=== PATIENT | male | born 1950 | race African-American/Black ===

== ENCOUNTER 2019-03-13 17:50 | Inpatient (IN) | payer MEDICARE ==
[2019-03-13 21:44] LABS: Basophils # (Auto) 0.1 K/mm3 (0.0-0.1); Basophils % (Auto) 0.9 % (0.0-1.8); Eosinophils # (Auto) 0.3 K/mm3 (0.0-0.4); Eosinophils % (Auto) 3.6 % (0.0-4.3); Hematocrit 42.6 % (35.5-45.6); Hemoglobin 14.2 gm/dl (11.8-15.2); Lymphocytes # (Auto) 1.9 K/mm3 (1.2-5.4); Lymphocytes % (Auto) 20.3 % (13.4-35.0); Mean Corpuscular HGB Conc 33 % (32-34); Mean Corpuscular Volume 91 fl (84-94); Monocytes # (Auto) 0.7 K/mm3 (0.0-0.8); Monocytes % (Auto) 7.7 % (0.0-7.3); Red Blood Count 4.71 M/mm3 (3.65-5.03); Red Cell Distribution Width 17.4 % (13.2-15.2)
[2019-03-13 21:52] LABS: Platelet Count 289 K/mm3 (140-440)
[2019-03-13 22:03] LABS: Calcium 9.6 mg/dL (8.4-10.2); INR 0.74 (0.87-1.13)
--- NOTE | 2019-03-13 22:28 | XRay Report ---
ABDOMEN SUPINE INDICATION / CLINICAL INFORMATION: broken peg tube. COMPARISON: None available. FINDINGS: PEG tube cannot be identified. Bowel gas pattern is nonspecific, not indicative of obstruction. Signer Name: Carlos Laguna MD Signed: 03/13/2019 10:24 PM Workstation Name: [id number]
--- NOTE | 2019-03-13 23:54 | Cat Scan Report ---
CT abdomen pelvis wo con INDICATION: luq peg tube broken with possible retained fb body. TECHNIQUE: All CT scans at this location are performed using the following dose modulation technique: Automated exposure control. CONTRAST: None. COMPARISON: None available. CT ABDOMEN: Mild pleural thickening right base. Evaluation of the parenchymal organs demonstrates a 1.4 cm left hepatic cyst located anteriorly and s uperiorly. The kidneys are partially atrophic and contain benign-appearing cysts Vasser calcification and nonobstructing right renal stones. The remaining parenchymal organs are unremarkable. Negative for abdominal mass, fluid collection or inflammation. The aorta contains atherosclerotic sharri cification. Evaluation of the bowel demonstrates no thickening or obstruction. Mild distention is noted at the si gmoid colon. No retained foreign body is identified. CT PELVIS: The appendix is normal. Negative for pelvic mass, fluid or inflammation. The prostate glan d is moderately enlarged. IMPRESSION: 1. Negative for retained foreign body. 2. Mild pleural thickening right base. 3. Renal atrophy with cysts and nonobstructing right renal stones. 4. Moderate prostate enlargement. Signer Name: Bertram Vu MD Signed: 03/13/2019 11:49 PM Workstation Name: [id number]
--- NOTE | 2019-03-14 00:10 | Emergency Department Report ---
ED Abdominal Pain HPI - General Chief Complaint: Tube Replacement Stated Complaint: PEG TUBE REINSERTION Time Seen by Provider: 03/13/19 20:57 Source: patient, EMS, old records reviewed Mode of arrival: Stretcher Limitations: Physical Limitation - History of Present Illness Initial Comments: 69-year-old male with a past medical history GERD, hypertension, anxiety, schizophrenia, end-stage renal disease on dialysis presents to the hospital for PEG tube dislodgment. As per medical record patient had his PEG tube replaced in the ER on February 05. He was sent to the ER with a Barr catheter in place to keep stoma patent. Patient does understand Filipino and able to answer basic questions however, I'm unsure how reliable his answers are. He nods yes that he does eat and also nods yest that they continue to use his Barr for meds. His medical records states he has a history of oral pharyngeal phase dysphasia. Patient is a 16 Jamaican G-tube taped to his abdomen with the distal tip appearing to be broken and lacking a balloon or bumper. Stoma appears to be closed. Note that a new chart was created today however, patient has been seen here sev eral times under a different medical record number Severity scale (0 -10): 0 - Related Data Allergies Allergy/AdvReac Type Severity Reaction Status Date / Time No Known Allergies Allergy Unverified 03/13/19 22:34 ED Review of Systems ROS: Stated complaint: PEG TUBE REINSERTION Other details as noted in HPI Comment: All other systems reviewed and negative ED Past Medical Hx - Past Medical History Previous Medical History?: Yes Hx Hypertension: Yes Hx GERD: Yes Hx Renal Disease: Yes (ESRD on HD) Hx Psychiatric Treatment: Yes (anxiety, schizophrenia) - Surgical History Past Surgical History?: Yes Additional Surgical History: PEG tube - Social History Smoking Status: Never Smoker Substance Use Type: None ED Physical Exam - General Limitations: Physical Limitation - Other Other exam information: General: No acute distress Head: Atraumatic Eyes: Normal appearance, Pupils equal and reactive to light, extraocular movements intact ENT: Normal oropharynx Neck: Normal appearance, no posterior or midline tenderness, no meningismus Chest: Clear to auscultation bilaterally, no wheezes, rales, or crackles CV: Regular rate and rhythm Abdomen: soft, normal bowel sounds, nontender, nondistended, no rebound or guarding. Patient is a 16 Jamaican G-tube taped to his abdomen with the distal tip appearing to be broken and lacking a balloon or bumper. Stoma appears to be closed. Back: Nontender Extremity: Normal inspection, full range of motion, nontender Neuro: Alert Skin: No rash, redness, warmth ED Course Vital Signs 03/13/19 03/13/19 03/13/19 17:53 18:56 19:30 Temperature 97.6 F 97.8 F 97.6 F Pulse Rate 90 80 83 Respiratory 20 12 14 Rate Blood Pressure 126/82 Blood Pressure 140/80 133/74 [Right] O2 Sat by Pulse 97 99 99 Oximetry 03/13/19 03/13/19 03/13/19 20:00 21:00 22:00 Temperature Pulse Rate 85 93 H 87 Respiratory 14 17 14 Rate Blood Pressure Blood Pressure 133/77 132/87 135/79 [Right] O2 Sat by Pulse 98 98 97 Oximetry 03/13/19 23:00 Temperature Pulse Rate 92 H Respiratory 14 Rate Blood Pressure Blood Pressure 127/78 [Right] O2 Sat by Pulse 98 Oximetry - Consultations Consultation #1: 03/14/19 00:27 case d/w Dr Granda GI, ct advised and report was discussed, NO FB identified. Pt will be admitted for peg placement ED Medical Decision Making - Lab Data Result diagrams: 03/13/19 21:33 03/13/19 21:33 Lab Results 03/13/19 03/13/19 03/13/19 Range/Units 21:33 21:33 21:33 WBC 9.3 (4.5-11.0) K/mm3 RBC 4.71 (3.65-5.03) M/mm3 Hgb 14.2 (11.8-15.2) gm/dl Hct 42.6 (35.5-45.6) % MCV 91 (84-94) fl MCH 30 (28-32) pg MCHC 33 (32-34) % RDW 17.4 H (13.2-15.2) % Plt Count 289 (140-440) K/mm3 Lymph % (Auto) 20.3 (13.4-35.0) % [place] % (Auto) 7.7 H (0.0-7.3) % Eos % (Auto) 3.6 (0.0-4.3) % Baso % (Auto) 0.9 (0.0-1.8) % Lymph # 1.9 (1.2-5.4) K/mm3 [place] # 0.7 (0.0-0.8) K/mm3 Eos # 0.3 (0.0-0.4) K/mm3 Baso # 0.1 (0.0-0.1) K/mm3 Seg Neutrophils % 67.5 (40.0-70.0) % Seg Neutrophils # 6.3 (1.8-7.7) K/mm3 PT 10.2 L (12.2-14.9) Sec. INR 0.74 L (0.87-1.13) APTT 20.0 L (24.2-36.6) Sec. Sodium 136 L (137-145) mmol/L Potassium 4.1 (3.6-5.0) mmol/L Chloride 93.7 L (98-107) mmol/L Carbon Dioxide 25 (22-30) mmol/L Anion Gap 21 mmol/L BUN 26 H (9-20) mg/dL Creatinine 3.0 H (0.8-1.5) mg/dL Estimated GFR 21 ml/min BUN/Creatinine Ratio 9 % Glucose 86 (75-100) mg/dL Calcium 9.6 (8.4-10.2) mg/dL - Radiology Data Radiology results: report reviewed ABDOMEN SUPINE INDICATION / CLINICAL INFORMATION: broken peg tube. COMPARISON: None available. FINDINGS: PEG tube cannot be identified. Bowel gas pattern is nonspecific, not indicative of obstruction. CT abdomen pelvis wo con INDICATION: luq peg tube broken with possible retained fb body. TECHNIQUE: All CT scans at this location are performed using the following dose modulation technique: Automated exposure control. CONTRAST: None. COMPARISON: None available. CT ABDOMEN: Mild pleural thickening right base. Evaluation of the parenchymal organs demonstrates a 1.4 cm left hepatic cyst located anteriorly and superiorly. The kidneys are partially atrophic and contain benign-appearing cysts Vasser calcification and nonobstructing right renal stones. The remaining parenchymal organs are unremarkable. Negative for abdominal mass, fluid collection or inflammation. The aorta contains atherosclerotic calcification. Evaluation of the bowel demonstrates no thickening or obstruction. Mild distention is noted at the sigmoid colon. No retained foreign body is identified. CT PELVIS: The appendix is normal. Negative for pelvic mass, fluid or inflammation. The prostate gland is moderately enlarged. IMPRESSION: 1. Negative for retained foreign body. 2. Mild pleural thickening right base. 3. Renal atrophy with cysts and nonobstructing right renal stones. 4. Moderate prostate enlargement. - Medical Decision Making Patient has his dislodged PEG without evidence of retained foreign body despite evidence of a broken distal tip on the peg tube catheter. Patient will be admitted for PEG tube placement. GI consulted - Differential Diagnosis dislodged headache, retained foreign body Critical Care Time: No Critical care attestation.: If time is entered above; I have spent that time in minutes in the direct care of this critically ill patient, excluding procedure time. ED Disposition Clinical Impression: PEG (percutaneous endoscopic gastrostomy) adjustment/replacement/removal, ESRD (end stage renal disease) on dialysis Disposition: OP ADMIT IP TO THIS HOSP Is pt being admited?: Yes Condition: Stable Time of Disposition: 00:31 (Dr Mei/hosp)
[2019-03-14] MEDS ORDERED: TYLENOL PO PRN (00:45)
[2019-03-14] MEDS ORDERED: ZOFRAN IV PRN (00:45)
[2019-03-14] MEDS ORDERED: SODIUM CHLORIDE FLUSH SYRINGE 10 ML IV PRN (00:45)
--- NOTE | 2019-03-14 01:41 | History and Physical Report ---
<TIFFANY ELIZABETH - Last Filed: 03/14/19 01:35> History of Present Illness Date of examination: 03/14/19 Date of admission: 03/14/19 00:45 Chief complaint: PEG tube dislodgment History of present illness: 69-year-old male who is resident of [facility] with history of bipolar disorder, schizophrenia, anxiety, GERD, chronic dysphagia s/p PEG tube, ESRD on HD M/W/F, hypertension, CHF, cardiomyopathy who presents to [facility] ED com plaints of PEG tube dislodgment and is here for reinsertion. On examination stoma is closed. Pt has a 16 Lithuanian G-tube holding in his left hand. Review of medical records shows patient was seen in ED on 02/05 with Barr in gastrotomy site to keep stoma patent . Head exchange was done in ED and pt was discharged back to [facility]. Past History Past Medical History: ESRD (on hd m/w/f,), GERD, heart failure, hypertension, other (chronic dysphasia, cardiomyopathy, bipolar, schizophrenia, anxiety) Past Surgical History: Other (PEG tube placement, right chest permacath) Social history: other (resident of [facility]) Family history: no significant family history Medications and Allergies Allergies Allergy/AdvReac Type Severity Reaction Status Date / Time No Known Allergies Allergy Unverified 03/13/19 22:34 Active Meds: Active Medications Acetaminophen (Tylenol) 650 mg PO Q4H PRN PRN Reason: Pain MILD(1-3)/Fever >100.5/HERNANDEZ Heparin Sodium (Porcine) (Heparin) 5,000 unit SUB-Q Q12HR BASIL Ondansetron HCl (Zofran) 4 mg IV Q8H PRN PRN Reason: Nausea And Vomiting Sodium Chloride (Sodium Chloride Flush Syringe 10 Ml) 10 ml IV BID BASIL Sodium Chloride (Sodium Chloride Flush Syringe 10 Ml) 10 ml IV PRN PRN PRN Reason: LINE FLUSH Review of Systems All systems: negative Gastrointestinal: other (PEG tube dislodgment) Exam - Physical Exam Narrative exam: Physical exam General appearance: Present: No acute distress, alert and oriented 2, older adult male - EENT Eyes: Present: PERRL, EOM intact ENT: hearing intact, no dentition - Neck Neck: Present: supple, normal ROM - Respiratory Respiratory effort: Non-labored Respiratory: bilateral: diminished (bases) - Cardiovascular Heart rate: 92 (bpm) Rhythm: regular Heart Sounds: Present: S1 & S2. Absent: rub, click - Extremities Extremities: no ischemia, pulses intact, right chest permacath - Peripheral Assessment Peripheral Pulses: within normal limits - Abdominal General gastrointestinal: soft, non-tender, active bsx4, LUQ PEG tube site closed - Integumentary Integumentary: Present: warm, dry - Musculoskeletal Musculoskeletal: generalized weakness - Psychiatric Psychiatric: cooperative - Constitutional Vitals: Temp Pulse Resp BP Pulse Ox 97.6 F 92 H 14 127/78 98 03/13/19 19:30 03/13/19 23:00 03/13/19 23:00 03/13/19 23:00 03/13/19 23:00 Results - Labs CBC & Chem 7: 03/13/19 21:33 03/13/19 21:33 Labs: Laboratory Last Values WBC 9.3 K/mm3 (4.5-11.0) 03/13/19 21:33 RBC 4.71 M/mm3 (3.65-5.03) 03/13/19 21:33 Hgb 14.2 gm/dl (11.8-15.2) 03/13/19 21:33 Hct 42.6 % (35.5-45.6) 03/13/19 21:33 MCV 91 fl (84-94) 03/13/19 21:33 MCH 30 pg (28-32) 03/13/19 21:33 MCHC 33 % (32-34) 03/13/19 21:33 RDW 17.4 % (13.2-15.2) H 03/13/19 21:33 Plt Count 289 K/mm3 (140-440) 03/13/19 21:33 Lymph % (Auto) 20.3 % (13.4-35.0) 03/13/19 21:33 [place] % (Auto) 7.7 % (0.0-7.3) H 03/13/19 21:33 Eos % (Auto) 3.6 % (0.0-4.3) 03/13/19 21:33 Baso % (Auto) 0.9 % (0.0-1.8) 03/13/19 21:33 Lymph # 1.9 K/mm3 (1.2-5.4) 03/13/19 21:33 [place] # 0.7 K/mm3 (0.0-0.8) 03/13/19 21:33 Eos # 0.3 K/mm3 (0.0-0.4) 03/13/19 21:33 Baso # 0.1 K/mm3 (0.0-0.1) 03/13/19 21:33 Seg Neutrophils % 67.5 % (40.0-70.0) 03/13/19 21:33 Seg Neutrophils # 6.3 K/mm3 (1.8-7.7) 03/13/19 21:33 PT 10.2 Sec. (12.2-14.9) L 03/13/19 21:33 INR 0.74 (0.87-1.13) L 03/13/19 21:33 APTT 20.0 Sec. (24.2-36.6) L 03/13/19 21:33 Sodium 136 mmol/L (137-145) L 03/13/19 21:33 Potassium 4.1 mmol/L (3.6-5.0) 03/13/19 21:33 Chloride 93.7 mmol/L (98-107) L 03/13/19 21:33 Carbon Dioxide 25 mmol/L (22-30) 03/13/19 21:33 21 mmol/L 03/13/19 21:33 BUN 26 mg/dL (9-20) H 03/13/19 21:33 3.0 mg/dL (0.8-1.5) H 03/13/19 21:33 Estimated GFR 21 ml/min 03/13/19 21:33 9 % 03/13/19 21:33 Glucose 86 mg/dL (75-100) 03/13/19 21:33 Calcium 9.6 mg/dL (8.4-10.2) 03/13/19 21:33 - Imaging and Cardiology Imaging and Cardiology: Abdominal XR: FINDINGS: PEG tube cannot be identified. Bowel gas pattern is nonspecific, not indicative of obstruction. CT Abd/Pelvis: CT ABDOMEN: Mild pleural thickening right base. Evaluation of the parenchymal organs demonstrates a 1.4 cm left hepatic cyst located anteriorly and superiorly. The kidneys are partially atrophic and contain benign-appearing cysts Vasser calcification and nonobstructing right renal stones. The remaining parenchymal organs are unremarkable. Negative for abdominal mass, fluid collection or inflammation. The aorta contains atherosclerotic calcification. Evaluation of the bowel demonstrates no thickening or obstruction. Mild distention is noted at the sigmoid colon. No retained foreign body is identified. CT PELVIS: The appendix is normal. Negative for pelvic mass, fluid or inflammation. The prostate gland is moderately enlarged. IMPRESSION: 1. Negative for retained foreign body. 2. Mild pleural thickening right base. 3. Renal atrophy with cysts and nonobstructing right renal stones. 4. Moderate prostate enlargement. Assessment and Plan Assessment and plan: 69-year-old male who is resident of [facility] with history of bipolar disorder, schizophrenia, anxiety, GERD, chronic dysphagia s/p PEG tube, ESRD on HD M/W/F, hypertension, CHF, cardiomyopathy who presents to [facility] ED complaints of PEG tube dislodgment and is here for reinsertion. PEG tube dislodgment -Left lower quadrant PEG tube dislodged -CT Abd/Pelvis negative for retained foreign body -GI consulted with plans to surgically reinsert ESRD on HD M/W/F -Nephrology consulted for HD mgmt Hypertension -Continue to monitor BP -IV antihypertensive as needed DVT PPX -On SCD's Advance Directives: No VTE prophylaxis?: Mechanical Plan of care discussed with patient/family: Yes <IVORY GALLAGHER - Last Filed: 03/14/19 03:14> History of Present Illness Date of admission: 03/14/19 00:45 Medications and Allergies Active Meds: Active Medications Acetaminophen (Tylenol) 650 mg PO Q4H PRN PRN Reason: Pain MILD(1-3)/Fever >100.5/HERNANDEZ Hydralazine HCl (Apresoline) 10 mg IV Q4H PRN PRN Reason: Blood Pressure Ondansetron HCl (Zofran) 4 mg IV Q8H PRN PRN Reason: Nausea And Vomiting Sodium Chloride (Sodium Chloride Flush Syringe 10 Ml) 10 ml IV BID BASIL Sodium Chloride (Sodium Chloride Flush Syringe 10 Ml) 10 ml IV PRN PRN PRN Reason: LINE FLUSH Exam - Constitutional Vitals: Temp Pulse Resp BP Pulse Ox 97.6 F 92 H 14 127/78 98 03/13/19 19:30 03/13/19 23:00 03/13/19 23:00 03/13/19 23:00 03/13/19 23:00 Results - Labs CBC & Chem 7: 03/13/19 21:33 03/13/19 21:33 Labs: Laboratory Last Values WBC 9.3 K/mm3 (4.5-11.0) 03/13/19 21:33 RBC 4.71 M/mm3 (3.65-5.03) 03/13/19 21:33 Hgb 14.2 gm/dl (11.8-15.2) 03/13/19 21:33 Hct 42.6 % (35.5-45.6) 03/13/19 21: MCV 91 fl (84-94) 03/13/19 21: MCH 30 pg (28-32) 03/13/19 21: MCHC 33 % (32-34) 03/13/19 21: RDW 17.4 % (13.2-15.2) H 03/13/19 21:33 Plt Count 289 K/mm3 (140-440) 03/13/19 21:33 Lymph % (Auto) 20.3 % (13.4-35.0) 03/13/19 21:33 [place] % (Auto) 7.7 % (0.0-7.3) H 03/13/19 21:33 Eos % (Auto) 3.6 % (0.0-4.3) 03/13/19 21: Baso % (Auto) 0.9 % (0.0-1.8) 03/13/19 21: Lymph # 1.9 K/mm3 (1.2-5.4) 03/13/19 21: [place] # 0.7 K/mm3 (0.0-0.8) 03/13/19 21:33 Eos # 0.3 K/mm3 (0.0-0.4) 03/13/19 21:33 Baso # 0.1 K/mm3 (0.0-0.1) 03/13/19 21:33 Seg Neutrophils % 67.5 % (40.0-70.0) 03/13/19 21:33 Seg Neutrophils # 6.3 K/mm3 (1.8-7.7) 03/13/19 21: PT 10.2 Sec. (12.2-14.9) L 03/13/19 21:33 INR 0.74 (0.87-1.13) L 03/13/19 21:33 APTT 20.0 Sec. (24.2-36.6) L 03/13/19 21:33 Sodium 136 mmol/L (137-145) L 03/13/19 21:33 Potassium 4.1 mmol/L (3.6-5.0) 03/13/19 21:33 Chloride 93.7 mmol/L (98-107) L 03/13/19 21:33 Carbon Dioxide 25 mmol/L (22-30) 03/13/19 21:33 21 mmol/L 03/13/19 21:33 BUN 26 mg/dL (9-20) H 03/13/19 21:33 3.0 mg/dL (0.8-1.5) H 03/13/19 21:33 Estimated GFR 21 ml/min 03/13/19 21:33 9 % 03/13/19 21:33 Glucose 86 mg/dL (75-100) 03/13/19 21:33 Calcium 9.6 mg/dL (8.4-10.2) 03/13/19 21:33 Assessment and Plan Assessment and plan: Patient seen and examined, 69-year-old man, prison patient with multiple medical problems assented in the emergency room because his PEG tube dislodged. Agree with GI consult for replacement
[2019-03-14] MEDS ORDERED: APRESOLINE IV PRN (01:49)
--- NOTE | 2019-03-14 09:30 | Consultation ---
History of Present Illness - Reason for Consult Consult date: 03/14/19 end stage renal disease Requesting physician: TIFFANY ELIZABETH - History of Present Illness This is a 69yo M, [facility] resident, with past medical history of hypertension, CHF, bipolar disorder, schizophrenia, anxiety, GERD, chronic dysphagia s/p PEG tube, ESRD on HD M/W/ at [facility], who presents to [facility] ED after PEG tube dislodgment, now admitted for reinsertion. On examination stoma is closed. Renal consult is requested for management of ESRD/HD. Past History Past Medical History: ESRD (on hd m/w/,), GERD, heart failure, hypertension, other (chronic dysphasia, cardiomyopathy, bipolar, schizophrenia, anxiety) Past Surgical History: Other (PEG tube placement, right chest permacath) Social history: other (resident of [facility]) Family history: no significant family history Medications and Allergies Allergies Allergy/AdvReac Type Severity Reaction Status Date / Time No Known Allergies Allergy Unverified 03/13/19 22:34 Home Medications Medication Instructions Recorded Confirmed Last Taken Type Escitalopram Oxalate [Lexapro] 5 mg FEEDTUBE QDAY 03/14/19 03/14/19 Unknown History L. Acidophilus/L.bulgaricus 1 each FEEDTUBE DAILY 03/14/19 03/14/19 Unknown History [Lactobacillus Tablet] Metoprolol [Lopressor] 25 mg FEEDTUBE BID 03/14/19 03/14/19 Unknown History Ondansetron [Zofran TAB] 4 mg FEEDTUBE Q8HR PRN 03/14/19 03/14/19 Unknown History Pepcid 20 mg FEEDTUBE BID 03/14/19 03/14/19 Unknown History QUEtiapine [SEROquel] 25 mg FEEDTUBE BID 03/14/19 03/14/19 02/28/19 History Active Meds: Active Medications Hydralazine HCl (Apresoline) 10 mg IV Q4H PRN PRN Reason: Blood Pressure Ondansetron HCl (Zofran) 4 mg IV Q8H PRN PRN Reason: Nausea And Vomiting Sodium Chloride (Sodium Chloride Flush Syringe 10 Ml) 10 ml IV BID BASIL Sodium Chloride (Sodium Chloride Flush Syringe 10 Ml) 10 ml IV PRN PRN PRN Reason: LINE FLUSH Review of Systems All systems: negative (PEG tube dislogement) Exam - Vital Signs Vital signs: Vital Signs Temp Pulse Resp BP Pulse Ox 97.6 F 90 20 126/82 97 03/13/19 17:53 03/13/19 17:53 03/13/19 17:53 03/13/19 17:53 03/13/19 17:53 - General Appearance General appearance: well-developed, appears stated age EENT: ATNC, PERRL, mucous membranes moist Neck: Present: neck supple Respiratory: Clear to Ascultation Heart: regular, S1S2 Gastrointestinal: Present: normoactive bowel sounds Integumentary: no rash, other (no edema ) Neurologic: no focal deficit, strength 5/5, CN 3-12 intact Psychiatric: mood/affect appropriate, cooperative Results - Lab Results 03/13/19 21:33 03/13/19 21:33 Most recent lab results Calcium 9.6 mg/dL (8.4-10.2) 03/13/19 21:33 Assessment and Plan - Patient Problems (1) ESRD (end stage renal disease) on dialysis Current Visit: Yes Status: Acute Plan to address problem: Pt's last HD was on 03/13, no urgent indication for renal replacement at present. cont HD on MWF schedule. (2) PEG (percutaneous endoscopic gastrostomy) adjustment/replacement/removal Current Visit: Yes Status: Acute Plan to address problem: Follow Surgery recommendations for reinsertion of PEG tube.
--- NOTE | 2019-03-14 09:43 | Progress Note ---
Assessment and Plan Assessment and plan: 69-year-old male who is resident of [facility] custodial with history of bipolar disorder, schizophrenia, anxiety, GERD, chronic dysphagia s/p PEG tube, ESRD on HD M/W/, hypertension, CHF, cardiomyopathy who presents to [facility] ED complaints of PEG tube dislodgment and is here for reinsertion. --PEG tube dislodgment: CT Abd/Pelvis negative for retained foreign body GI evaluation noted and appreciated Family member to consent for PEG tube placement Administrative consent will be obtained Scheduled for PEG placement tomorrow ESRD on HD M/W/F --End-stage renal disease on hemodialysis: HD per scheduled ,Nephrology following --Hypertension: Monitor blood pressures, when necessary hydralazine --DVT PPX; SCDs --Full CODE STATUS Monitor closely and adjust management as needed Plan of care is reviewed with the patient his nurse and case management I also discussed with GI Disposition; PEG placement tomorrow, possible discharge to [place] once patient tolerates pretreats History Interval history: Patient seen and examined medical records reviewed Admitted with a dislodged PEG tube GI evaluated the patient, patient has no family contact to sign consent Administrative consults will be obtained Scheduled for PEG placement more She is comfortable in no new complaints vital signs stable Hospitalist Physical - Constitutional Vitals: Temp Pulse Resp BP Pulse Ox 97.8 F 86 18 133/85 96 03/14/19 07:28 03/14/19 07:28 03/14/19 07:28 03/14/19 07:28 03/14/19 07:28 General appearance: Present: no acute distress, well-nourished - EENT Eyes: Present: PERRL, EOM intact - Neck Neck: Present: supple, normal ROM - Respiratory Respiratory effort: normal Respiratory: bilateral: diminished, negative: rales, rhonchi, wheezing - Cardiovascular Rhythm: regular Heart Sounds: Present: S1 & S2 - Extremities Extremities: no ischemia, No edema - Abdominal General gastrointestinal: soft, non-tender, non-distended, normal bowel sounds, other (PEG site clean) - Integumentary Integumentary: Present: clear, warm - Psychiatric Psychiatric: appropriate mood/affect, cooperative, other (confused at times) - Neurologic Neurologic: moves all extremities Results - Labs CBC & Chem 7: 03/13/19 21:33 03/13/19 21:33 Labs: Laboratory Last Values WBC 9.3 K/mm3 (4.5-11.0) 03/13/19 21:33 RBC 4.71 M/mm3 (3.65-5.03) 03/13/19 21:33 Hgb 14.2 gm/dl (11.8-15.2) 03/13/19 21:33 Hct 42.6 % (35.5-45.6) 03/13/19 21: MCV 91 fl (84-94) 03/13/19 21: MCH 30 pg (28-32) 03/13/19 21: MCHC 33 % (32-34) 03/13/19 21: RDW 17.4 % (13.2-15.2) H 03/13/19 21: Plt Count 289 K/mm3 (140-440) 03/13/19 21: Lymph % (Auto) 20.3 % (13.4-35.0) 03/13/19 21: [place] % (Auto) 7.7 % (0.0-7.3) H 03/13/19 21: Eos % (Auto) 3.6 % (0.0-4.3) 03/13/19 21: Baso % (Auto) 0.9 % (0.0-1.8) 03/13/19 21: Lymph # 1.9 K/mm3 (1.2-5.4) 03/13/19 21: [place] # 0.7 K/mm3 (0.0-0.8) 03/13/19 21: Eos # 0.3 K/mm3 (0.0-0.4) 03/13/19 21: Baso # 0.1 K/mm3 (0.0-0.1) 03/13/19 21: Seg Neutrophils % 67.5 % (40.0-70.0) 03/13/19 21: Seg Neutrophils # 6.3 K/mm3 (1.8-7.7) 03/13/19 21: PT 10.2 Sec. (12.2-14.9) L 03/13/19 21: INR 0.74 (0.87-1.13) L 03/13/19 21:33 APTT 20.0 Sec. (24.2-36.6) L 03/13/19 21:33 Sodium 136 mmol/L (137-145) L 03/13/19 21:33 Potassium 4.1 mmol/L (3.6-5.0) 03/13/19 21:33 Chloride 93.7 mmol/L (98-107) L 03/13/19 21:33 Carbon Dioxide 25 mmol/L (22-30) 03/13/19 21:33 21 mmol/L 03/13/19 21:33 BUN 26 mg/dL (9-20) H 03/13/19 21:33 3.0 mg/dL (0.8-1.5) H 03/13/19 21:33 Estimated GFR 21 ml/min 03/13/19 21:33 9 % 03/13/19 21:33 Glucose 86 mg/dL (75-100) 03/13/19 21:33 Calcium 9.6 mg/dL (8.4-10.2) 03/13/19 21:33 Active Medications - Current Medications Current Medications: Generic Name Dose Route Start Last Admin Trade Name Freq PRN Reason Stop Dose Admin Hydralazine HCl 10 mg 03/14/19 01:49 Apresoline IV Q4H PRN Blood Pressure Ondansetron HCl 4 mg 03/14/19 00:45 Zofran IV Q8H PRN Nausea And Vomiting Sodium Chloride 10 ml 03/14/19 10:00 Sodium Chloride Flush Syringe 10 Ml IV BID BASIL Sodium Chloride 10 ml 03/14/19 00:45 Sodium Chloride Flush Syringe 10 Ml IV PRN PRN LINE FLUSH
--- NOTE | 2019-03-14 09:52 | Gastroenterology Consultation ---
History of Present Illness - Reason for Consult Consult date: 03/14/19 Dysphagia Requesting physician: JILLIAN STEINER - History of Present Illness History from chart as patient cannot provide history 69-year-old male who is resident of [facility] with history of bipolar disorder, schizophrenia, anxiety, GERD, chronic dysphagia s/p PEG tube, ESRD on HD M/W/F, hypertension, CHF, cardiomyopathy who presents to [facility] ED complaints of PEG tube dislodgment and is here for reinsertion. Tract is closed. Past History Past Medical History: ESRD (on hd m/w/f,), GERD, heart failure, hypertension, other (chronic dysphasia, cardiomyopathy, bipolar, schizophrenia, anxiety) Past Surgical History: Other (PEG tube placement, right chest permacath) Social history: other (resident of [facility]) Family history: no significant family history Medications and Allergies Allergies Allergy/AdvReac Type Severity Reaction Status Date / Time No Known Allergies Allergy Unverified 03/13/19 22:34 Home Medications Medication Instructions Recorded Confirmed Last Taken Type Escitalopram Oxalate [Lexapro] 5 mg FEEDTUBE QDAY 03/14/19 03/14/19 Unknown History L. Acidophilus/L.bulgaricus 1 each FEEDTUBE DAILY 03/14/19 03/14/19 Unknown History [Lactobacillus Tablet] Metoprolol [Lopressor] 25 mg FEEDTUBE BID 03/14/19 03/14/19 Unknown History Ondansetron [Zofran TAB] 4 mg FEEDTUBE Q8HR PRN 03/14/19 03/14/19 Unknown History Pepcid 20 mg FEEDTUBE BID 03/14/19 03/14/19 Unknown History QUEtiapine [SEROquel] 25 mg FEEDTUBE BID 03/14/19 03/14/19 02/28/19 History Active Meds: Active Medications Hydralazine HCl (Apresoline) 10 mg IV Q4H PRN PRN Reason: Blood Pressure Ondansetron HCl (Zofran) 4 mg IV Q8H PRN PRN Reason: Nausea And Vomiting Sodium Chloride (Sodium Chloride Flush Syringe 10 Ml) 10 ml IV BID BASIL Sodium Chloride (Sodium Chloride Flush Syringe 10 Ml) 10 ml IV PRN PRN PRN Reason: LINE FLUSH Review of Systems - Review of Systems ROS unobtainable: due to mental status Exam - Constitutional Vital Signs: Temp Pulse Resp BP Pulse Ox 97.8 F 86 18 133/85 96 03/14/19 07:28 03/14/19 07:28 03/14/19 07:28 03/14/19 07:28 03/14/19 07:28 General appearance: no acute distress - EENT Eyes: EOM intact ENT: hearing intact - Respiratory Respiratory: bilateral: CTA - Cardiovascular Rhythm: regular - Gastrointestinal General gastrointestinal: Present: soft, non-tender, other (G tube tract closed) - Neurologic Neurological: other (unable to provide a history) - Labs CBC & Chem 7: 03/13/19 21:33 03/13/19 21:33 Lab Results: Laboratory Results - last 24 hr 03/13/19 03/13/19 03/13/19 21:33 21:33 21:33 WBC 9.3 RBC 4.71 Hgb 14.2 Hct 42.6 MCV 91 MCH 30 MCHC 33 RDW 17.4 H Plt Count 289 Lymph % (Auto) 20.3 [place] % (Auto) 7.7 H Eos % (Auto) 3.6 Baso % (Auto) 0.9 Lymph # 1.9 [place] # 0.7 Eos # 0.3 Baso # 0.1 Seg Neutrophils % 67.5 Seg Neutrophils # 6.3 PT 10.2 L INR 0.74 L APTT 20.0 L Sodium 136 L Potassium 4.1 Chloride 93.7 L Carbon Dioxide 25 Anion Gap 21 BUN 26 H Creatinine 3.0 H Estimated GFR 21 BUN/Creatinine Ratio 9 Glucose 86 Calcium 9.6 Assessment and Plan Patient requires G tube for nutrition, will plan on placement He lacks capacity, he has no family and no guardian and no HCP per chart and staff called [place] and they confirm this. Given patient requires nutrition for survival will need to proceed with 2 physician consent. Spoke with endo lab, will proceed with procedure tomorrow. Will pre-medicate with Abx in the endo lab. - Patient Problems (1) Dysphagia Current Visit: Yes Status: Acute (2) PEG (percutaneous endoscopic gastrostomy) adjustment/replacement/removal Current Visit: Yes Status: Acute
[2019-03-14] MEDS ORDERED: HEPARIN SUB-Q SCH (10:00)
[2019-03-14] MEDS: SODIUM CHLORIDE FLUSH SYRINGE 10 ML IV SCH ×2 (10:20→21:53)
[2019-03-14] MEDS ORDERED: NACL 0.9% 100 ML IV PRN (17:32)
[2019-03-14 22:15] LABS: Hepatitis B Surface Antigen Non-Reactive (Negative); Hepatitis C Virus Antibody Non-Reactive (NonReactive)
[2019-03-15 05:39] LABS: Calcium 9.8 mg/dL (8.4-10.2)
[2019-03-15] MEDS ORDERED: ANCEF/STERILE WATER 2 GM/20 ML 2 GM/20 ML SYRINGE IV NR (07:00)
[2019-03-15] MEDS ORDERED: NACL 0.9% 1000 ML 1,000 ML IV SCH (07:00)
[2019-03-15] MEDS ORDERED: ANCEF/STERILE WATER 2 GM/20 ML 2 GM/20 ML SYRINGE IV ONE (07:14)
--- NOTE | 2019-03-15 07:20 | Anesthesia Consultation ---
Anesthesia Consult and Med Hx Date of service: 03/15/19 - Airway ROM Head & Neck: Adequate Mental/Hyoid Distance: Adequate Mallampati Class: Class II Intubation Access Assessment: Good - Pre-Operative Health Status ASA Pre-Surgery Classification: ASA4 Proposed Anesthetic Plan: TIVA - Cardiovascular System Hx Hypertension: Yes - Central Nervous System Hx Psychiatric Problems: Yes (bipolar/schizophrenia--in [facility]) - Endocrine Hx Renal Disease: Yes (ESRD on HD) - Additional Comments Anesthesia Medical History Comments: peg tube dislodgement...dysphagia
--- NOTE | 2019-03-15 07:20 | Anesthesia Day of Surgery ---
Anesthesia Day of Surgery - Day of Surgery Patient Examined: Yes Patient H&P Reviewed: Yes Patient is NPO: Yes
[2019-03-15] MEDS ORDERED: XYLOCAINE MPF 2% ONE (07:30)
[2019-03-15] MEDS ORDERED: HURRICAINE ONE 20% TOPICAL SPRAY MM (07:37)
[2019-03-15] MEDS ORDERED: DIPRIVAN 10 MG/ML IV ONE ×2 (07:37)
--- NOTE | 2019-03-15 08:05 | Operative Report ---
Operative Report Operative Report: DOS 03/15/19 SURGEON: Neto Borrero MD EGD WITH PEG TUBE PLACEMENT and gastric biopsy REPORT PREOPERATIVE DIAGNOSIS and POSTOPERATIVE DIAGNOSIS: Dysphagia ESTIMATED BLOOD LOSS: minimal PRE-OP ANTIBIOTICS - Ancef IV 2gm x 1 dose DESCRIPTION OF PROCEDURE: A high-resolution EGD scope was passed through the oropharynx, esophagus, stomach, and second portion of duodenum. The scope was carefully withdrawn. Retroflexion was performed in the stomach. At the end of the procedure, the scope was cleaned using normal technique. Vital signs monitored continuously throughout. The stomach was transilluminated and an optimal position for the PEG tube was identified using the single poke method. The skin was infiltrated with local anesthesia and the needle and sheath were inserted through the abdomen into the stomach under direct visualization. The needle was removed and a guidewire was inserted through the sheath. The guidewire was grasped from above with a snare. It was removed completely and the PEG tube was secured to the guidewire. The guidewire and 20 prydeinig PEG tube were then pulled through the mouth and esophagus and snug to the abdominal wall. There was no evidence of bleeding. The Bolster was placed on the PEG site. The scope was then reinserted and placement of the internal bumper without complication was confirmed SEDATION: Provided by Anesthesiology Services. COMPLICATIONS: None. FINDINGS: * Normal second portion of the duodenum * Moderate duodenitis with edema of the duodenal bulb * Moderate erosive gastritis of the gastric antrum and body, biopsies obtained to r/o H Pylori * Healing ulcer from recent PEG tube site * GE junction at 36cm from the incisors * Mild LA grade B reflux esophagitis in the distal 1cm of the esophagus * Remainder of the exam was normal RECOMMENDATIONS: * Continue daily PPI * F/u path results * May use PEG for water flushes today, may use for feeds starting tomorrow as long as normal Bowel sounds and no evidence of cellulitis
--- NOTE | 2019-03-15 09:17 | Progress Note ---
Assessment and Plan - Patient Problems (1) ESRD (end stage renal disease) on dialysis Current Visit: Yes Status: Acute Plan to address problem: cont HD on MWF schedule, stable for discharge from renal stand point after HD today. (2) PEG (percutaneous endoscopic gastrostomy) adjustment/replacement/removal Current Visit: Yes Status: Acute Plan to address problem: Follow Surgery recommendations for reinsertion of PEG tube. Subjective Date of service: 03/15/19 Principal diagnosis: ESRD Interval history: Pt awake, alert, in NAD, s/p reinsertion of PEG tube Objective - Vital Signs Vital signs: Vital Signs - 12hr 03/14/19 03/14/19 03/15/19 22:00 23:43 02:10 Temperature 97.7 F Pulse Rate 99 H 94 H Respiratory 16 Rate Blood Pressure 142/89 O2 Sat by Pulse 95 96 Oximetry 03/15/19 03/15/19 03/15/19 07:30 08:03 08:08 Temperature 98.0 F 97.4 F L Pulse Rate 98 H 95 H 98 H Respiratory 17 16 12 Rate Blood Pressure 145/85 106/70 91/74 O2 Sat by Pulse 99 95 96 Oximetry 03/15/19 03/15/19 03/15/19 08:18 08:28 08:38 Temperature Pulse Rate 90 93 H 90 Respiratory 13 14 15 Rate Blood Pressure 129/77 126/84 139/81 O2 Sat by Pulse 96 95 97 Oximetry 03/15/19 08:48 Temperature Pulse Rate 90 Respiratory 13 Rate Blood Pressure 124/88 O2 Sat by Pulse 96 Oximetry - General Appearance General appearance: well-developed, appears stated age EENT: ATNC, PERRL, mucous membranes moist Neck: no JVD Respiratory: Present: Clear to Ascultation Cardiology: regular, S1S2 Gastrointestinal: normoactive bowel sounds Integumentary: no rash, other (no edema ) Neurologic: no focal deficit, alert and oriented x3, strength 5/5, CN 3-12 intact Psychiatric: mood/affect appropriate, cooperative - Lab 03/13/19 21:33 03/15/19 05:06 Most recent lab results Calcium 9.8 mg/dL (8.4-10.2) 03/15/19 05:06 Medications & Allergies - Medications Allergies/Adverse Reactions: Allergies No Known Allergies Allergy (Unverified 03/13/19 22:34) Home Medications: Home Medications Medication Instructions Recorded Confirmed Last Taken Type Escitalopram Oxalate [Lexapro] 5 mg FEEDTUBE QDAY 03/14/19 03/14/19 Unknown History L. Acidophilus/L.bulgaricus 1 each FEEDTUBE DAILY 03/14/19 03/14/19 Unknown History [Lactobacillus Tablet] Metoprolol [Lopressor] 25 mg FEEDTUBE BID 03/14/19 03/14/19 Unknown History Ondansetron [Zofran TAB] 4 mg FEEDTUBE Q8HR PRN 03/14/19 03/14/19 Unknown History Pepcid 20 mg FEEDTUBE BID 03/14/19 03/14/19 Unknown History QUEtiapine [SEROquel] 25 mg FEEDTUBE BID 03/14/19 03/14/19 02/28/19 History Active Medications: Generic Name Dose Route Start Last Admin Trade Name Freq PRN Reason Stop Dose Admin Hydralazine HCl 10 mg 03/14/19 01:49 Apresoline IV Q4H PRN Blood Pressure Sodium Chloride 100 mls @ 999 mls/hr 03/14/19 17:32 Nacl 0.9% IV FANNY PRN Hypotension Sodium Chloride 1,000 mls @ 50 mls/hr 03/15/19 07:00 Nacl 0.9% 1000 Ml IV DIRECT BASIL Cefazolin Sodium 2 gm in 20 mls @ 80 mls/hr 03/15/19 07:00 Ancef/Sterile Water 2 Gm/20 Ml IV 03/15/19 18:00 PREOP NR Protocol Ondansetron HCl 4 mg 03/14/19 00:45 Zofran IV Q8H PRN Nausea And Vomiting Pantoprazole Sodium 40 mg 03/15/19 10:00 Protonix IV QDAY BASIL Sodium Chloride 10 ml 03/14/19 10:00 03/14/19 21:53 Sodium Chloride Flush Syringe 10 Ml IV 10 ml BID BASIL Administration Sodium Chloride 10 ml 03/14/19 00:45 Sodium Chloride Flush Syringe 10 Ml IV PRN PRN LINE FLUSH
[2019-03-15] MEDS: SODIUM CHLORIDE FLUSH SYRINGE 10 ML IV SCH (09:23)
[2019-03-15] MEDS: PROTONIX IV SCH (09:24)
[2019-03-15] MEDS ORDERED: SODIUM BICARBONATE FEEDTUBE PRN ×2 (10:30→13:33)
[2019-03-15] MEDS ORDERED: PANCREAZE DR 10,500 UNIT FEEDTUBE PRN ×2 (10:30→13:33)
[2019-03-15] MEDS ORDERED: SIMPLE SYRUP FEEDTUBE PRN ×4 (10:30→13:33)
--- NOTE | 2019-03-15 11:45 | Progress Note ---
Assessment and Plan Assessment and plan: 69-year-old male who is resident of [facility] with history of bipolar disorder, schizophrenia, anxiety, GERD, chronic dysphagia s/p PEG tube, ESRD on HD M/W/F, hypertension, CHF, cardiomyopathy who presents to [facility] ED complaints of PEG tube dislodgment and is here for reinsertion. CT Abd/Pelvis negative for retained foreign body --PEG tube dislodgment: s/p New PEG placement today Start PEG feeds per Protocol GI following.Patient also takes oral mechanical soft diet Check swallow eval, start oral diet as needed --End-stage renal disease on hemodialysis: HD per scheduled ,Nephrology following --Hypertension: Great control Monitor blood pressures, when necessary hydralazine --DVT PROPHYLAXIS; SCDs --Full CODE STATUS Physical therapy and occupational therapy Disposition; possible discharge to [facility] in 1-2 days if stable Plan of care is reviewed with the patient his nurse and case management I also discussed with GI Hospitalist Physical - Constitutional Vitals: Temp Pulse Resp BP Pulse Ox 97.4 F L 90 13 124/88 96 03/15/19 08:03 03/15/19 10:00 03/15/19 08:48 03/15/19 08:48 03/15/19 08:48 General appearance: Present: no acute distress, well-nourished - EENT Eyes: Present: PERRL, EOM intact - Neck Neck: Present: supple, normal ROM - Respiratory Respiratory effort: normal Respiratory: bilateral: diminished, negative: rales, rhonchi, wheezing - Cardiovascular Rhythm: regular Heart Sounds: Present: S1 & S2 - Extremities Extremities: no ischemia, No edema - Abdominal General gastrointestinal: soft, non-tender, non-distended, normal bowel sounds, other (New PEG tube in place) - Integumentary Integumentary: Present: clear, warm - Psychiatric Psychiatric: appropriate mood/affect, cooperative - Neurologic Neurologic: moves all extremities Results - Labs CBC & Chem 7: 03/13/19 21:33 03/15/19 05:06 Labs: Laboratory Last Values WBC 9.3 K/mm3 (4.5-11.0) 03/13/19 21:33 RBC 4.71 M/mm3 (3.65-5.03) 03/13/19 21:33 Hgb 14.2 gm/dl (11.8-15.2) 03/13/19 21:33 Hct 42.6 % (35.5-45.6) 03/13/19 21: MCV 91 fl (84-94) 03/13/19 21:33 MCH 30 pg (28-32) 03/13/19 21:33 MCHC 33 % (32-34) 03/13/19 21: RDW 17.4 % (13.2-15.2) H 03/13/19 21:33 Plt Count 289 K/mm3 (140-440) 03/13/19 21:33 Lymph % (Auto) 20.3 % (13.4-35.0) 03/13/19 21:33 [place] % (Auto) 7.7 % (0.0-7.3) H 03/13/19 21: Eos % (Auto) 3.6 % (0.0-4.3) 03/13/19 21: Baso % (Auto) 0.9 % (0.0-1.8) 03/13/19 21: Lymph # 1.9 K/mm3 (1.2-5.4) 03/13/19 21:33 [place] # 0.7 K/mm3 (0.0-0.8) 03/13/19 21: Eos # 0.3 K/mm3 (0.0-0.4) 03/13/19 21: Baso # 0.1 K/mm3 (0.0-0.1) 03/13/19 21:33 Seg Neutrophils % 67.5 % (40.0-70.0) 03/13/19 21: Seg Neutrophils # 6.3 K/mm3 (1.8-7.7) 03/13/19 21:33 PT 10.2 Sec. (12.2-14.9) L 03/13/19 21: INR 0.74 (0.87-1.13) L 03/13/19 21:33 APTT 20.0 Sec. (24.2-36.6) L 03/13/19 21:33 Sodium 138 mmol/L (137-145) 03/15/19 05:06 Potassium 3.7 mmol/L (3.6-5.0) 03/15/19 05:06 Chloride 95.2 mmol/L (98-107) L 03/15/19 05:06 Carbon Dioxide 21 mmol/L (22-30) L 03/15/19 05:06 26 mmol/L 03/15/19 05:06 BUN 54 mg/dL (9-20) H 03/15/19 05:06 5.1 mg/dL (0.8-1.5) H D 03/15/19 05:06 Estimated GFR 11 ml/min 03/15/19 05:06 11 % 03/15/19 05:06 Glucose 73 mg/dL (75-100) L 03/15/19 05:06 POC Glucose 65 (70-105) L 03/14/19 23:51 Calcium 9.8 mg/dL (8.4-10.2) 03/15/19 05:06 Hepatitis A IgM Ab Non-reactive (NonReactive) 03/14/19 20:02 Hep Bs Antigen Non-reactive (Negative) 03/14/19 20:02 Hep B Core IgM Ab Non-reactive (NonReactive) 03/14/19 20:02 Non-reactive (NonReactive) 03/14/19 20:02 Active Medications - Current Medications Current Medications: Generic Name Dose Route Start Last Admin Trade Name Freq PRN Reason Stop Dose Admin Lipase/Protease/Amylase 1 each 03/15/19 10:30 Pancreaze 10,500 Unit FEEDTUBE PRN PRN For Clogged Feeding Tube Hydralazine HCl 10 mg 03/14/19 01:49 Apresoline IV Q4H PRN Blood Pressure Sodium Chloride 100 mls @ 999 mls/hr 03/14/19 17:32 Nacl 0.9% IV FANNY PRN Hypotension Sodium Chloride 1,000 mls @ 50 mls/hr 03/15/19 07:00 Nacl 0.9% 1000 Ml IV DIRECT BASIL Cefazolin Sodium 2 gm in 20 mls @ 80 mls/hr 03/15/19 07:00 Ancef/Sterile Water 2 Gm/20 Ml IV 03/15/19 18:00 PREOP NR Protocol Ondansetron HCl 4 mg 03/14/19 00:45 Zofran IV Q8H PRN Nausea And Vomiting Pantoprazole Sodium 40 mg 03/15/19 10:00 03/15/19 09:24 Protonix IV 40 mg QDAY BASIL Administration Simple Syrup 15 ml 03/15/19 10:30 Simple Syrup FEEDTUBE PRN PRN Hypoglycemia Simple Syrup 30 ml 03/15/19 10:30 Simple Syrup FEEDTUBE PRN PRN Hypoglycemia Sodium Bicarbonate 325 mg 03/15/19 10:30 Sodium Bicarbonate FEEDTUBE PRN PRN For Clogged Feeding Tube Sodium Chloride 10 ml 03/14/19 10:00 03/15/19 09:23 Sodium Chloride Flush Syringe 10 Ml IV 10 ml BID BASIL Administration Sodium Chloride 10 ml 03/14/19 00:45 Sodium Chloride Flush Syringe 10 Ml IV PRN PRN LINE FLUSH Nutrition/Malnutrition Assess - Dietary Evaluation Nutrition/Malnutrition Findings: Nutrition Notes Start: 03/14/19 11:04 Freq: Status: Active Protocol: Document 03/14/19 11:05 LM (Rec: 03/14/19 11:57 LM [id number]) Nutrition Notes Need for Assessment generated from: supplier quality Initial or Follow up Assessment Current Diagnosis CKD (stage V CKD),Hypertension ,Heart Failure Other Pertinent Diagnosis PEG tube dislodgement, bipolar disorder, schizophrenia, GERD , dysphagia Current Diet NPO Labs/Tests Na 136 BUN 26 Cr 3 Pertinent Medications Reviewed Height 5 ft 5 in Weight 55.2 kg Usual Body Weight 77.27 kg [place] Body Weight (kg) 61.81 BMI 20.2 Weight change and time frame Pt stated he lost 49 lb in 6 mounths. Weight Status Underweight Subjective/Other Information RN screen for chewing difficulty and MST. Pt stated he gets nutrition via PEG tube and PO. Pt stated his appetite has been poor [employer]. Noticed pt missing several teeth. Pt denied any chewing difficulties and stated he tolerates a regular diet. Pt stated his UBW is 170 lb and began experiencing wt loss 6 mounths ago. Burn Absent Trauma Absent Minimum of two criteria Yes Energy Intake (non-severe) <75% Estimated Energy Requirement >7 days Interpretation of Weight Loss (severe) >10% in 6 months #1 Nutrition Diagnosis Malnutrition Etiology decreased appetite, chronic illness, dislodged PEG tube As Evidenced by Signs and Symptoms 29% wt loss in 60 mo, less than 75% estimated energy requirements greater than 7 days Is patient on ventilator? No Is Patient Ambulatory and/or Out of Bed No REE-([facility]-confined to bed) 1492.704 Kcal/Kg value to use for calculation 36 Approximate Energy Requirements Using 1987 kcal/Kg Calculation Used for Recommendations Kcal/kg Additional Notes Protein: 66-72g (1.2-1.3 g/kg) Fluids: 1-1.5 L Nutrition Intervention Change Diet Order: TF when medically feasible, CHRO eval for possible PO intake Nutrition Support: Recommend Nepro with Carbsteady at 40 ml/hr Flush 100 ml q4hr Kcal 1,728 Protein (gm) 78 Fluid (mL) 698 Goal #1 Start TF when medically feasible Anticipated Discharge Needs: TF Follow-Up By: 03/16/19 Additional Comments F/U for TF start/diet advancement
[2019-03-15] MEDS ORDERED: NACL 0.9 (PRIMING MACHINE ONLY DIALYSIS) MC ONE (18:22)
[2019-03-16] MEDS: SODIUM CHLORIDE FLUSH SYRINGE 10 ML IV SCH ×2 (06:02→09:11)
--- NOTE | 2019-03-16 07:36 | Gastroenterology Progress Note ---
Assessment and Plan May use G tube now for food/medicine/water GI will sign off, please call back for any questions - Patient Problems (1) Dysphagia Current Visit: Yes Status: Acute (2) PEG (percutaneous endoscopic gastrostomy) adjustment/replacement/removal Current Visit: Yes Status: Acute Subjective Date of service: 03/16/19 Principal diagnosis: Dysphagia Interval history: No issues overnight Objective - Constitutional Vitals: Temp Pulse Resp BP Pulse Ox 97.8 F 101 H 18 114/77 96 03/16/19 02:16 03/16/19 02:16 03/16/19 02:16 03/16/19 02:16 03/16/19 02:16 General appearance: no acute distress - Respiratory Respiratory: bilateral: CTA - Gastrointestinal General gastrointestinal: Present: soft, other (G tube in place, normal BS, soft abd, no induration) - Labs CBC & Chem 7: 03/13/19 21:33 03/15/19 05:06
[2019-03-16] MEDS: PROTONIX IV SCH (09:09)
--- NOTE | 2019-03-16 13:21 | Progress Note ---
Assessment and Plan Assessment and plan: 69-year-old male who is resident of [facility] [place] [facility] with history of bipolar disorder, schizophrenia, anxiety, GERD, chronic dysphagia s/p PEG tube, ESRD on HD M/W/F, hypertension, CHF, cardiomyopathy who presents to [facility] ED complaints of PEG tube dislodgment and is here for reinsertion. CT Abd/Pelvis negative for retained foreign body --PEG tube dislodgment: s/p New PEG placement today Start PEG feeds per Protocol GI following.Patient also takes oral mechanical soft diet Monitor closely --End-stage renal disease on hemodialysis: HD per scheduled ,Nephrology following --Hypertension: Great control Monitor blood pressures, when necessary hydralazine --DVT PROPHYLAXIS; SCDs --Full CODE STATUS Physical therapy and occupational therapy as needed Disposition; possible discharge to [place] [facility] tomorrow if stable Plan of care is reviewed with the patient his nurse and case management History Interval history: Patient seen and examined medical records reviewed No new events reported by the nursing. PEG feeds started this morning Alert awake not in acute distress Vital signs reviewed Hospitalist Physical - Constitutional Vitals: Temp Pulse Resp BP Pulse Ox 97.2 F L 104 H 18 130/77 95 03/16/19 07:31 03/16/19 10:00 03/16/19 10:00 03/16/19 07:31 03/16/19 10:00 General appearance: Present: no acute distress, well-nourished - EENT Eyes: Present: PERRL, EOM intact - Neck Neck: Present: supple, normal ROM - Respiratory Respiratory effort: normal - Cardiovascular Rhythm: regular Heart Sounds: Present: S1 & S2 - Extremities Extremities: no ischemia, No edema - Abdominal General gastrointestinal: soft, non-tender, non-distended, normal bowel sounds, other (PEG in place) - Integumentary Integumentary: Present: clear, warm - Psychiatric Psychiatric: appropriate mood/affect, cooperative - Neurologic Neurologic: CNII-XII intact, moves all extremities Results - Labs CBC & Chem 7: 03/13/19 21:33 03/15/19 05:06 Labs: Laboratory Last Values WBC 9.3 K/mm3 (4.5-11.0) 03/13/19 21:33 RBC 4.71 M/mm3 (3.65-5.03) 03/13/19 21:33 Hgb 14.2 gm/dl (11.8-15.2) 03/13/19 21:33 Hct 42.6 % (35.5-45.6) 03/13/19 21: MCV 91 fl (84-94) 03/13/19 21:33 MCH 30 pg (28-32) 03/13/19 21: MCHC 33 % (32-34) 03/13/19 21:33 RDW 17.4 % (13.2-15.2) H 03/13/19 21:33 Plt Count 289 K/mm3 (140-440) 03/13/19 21:33 Lymph % (Auto) 20.3 % (13.4-35.0) 03/13/19 21:33 [place] % (Auto) 7.7 % (0.0-7.3) H 03/13/19 21:33 Eos % (Auto) 3.6 % (0.0-4.3) 03/13/19 21: Baso % (Auto) 0.9 % (0.0-1.8) 03/13/19 21: Lymph # 1.9 K/mm3 (1.2-5.4) 03/13/19 21:33 [place] # 0.7 K/mm3 (0.0-0.8) 03/13/19 21:33 Eos # 0.3 K/mm3 (0.0-0.4) 03/13/19 21:33 Baso # 0.1 K/mm3 (0.0-0.1) 03/13/19 21:33 Seg Neutrophils % 67.5 % (40.0-70.0) 03/13/19 21: Seg Neutrophils # 6.3 K/mm3 (1.8-7.7) 03/13/19 21: PT 10.2 Sec. (12.2-14.9) L 03/13/19 21:33 INR 0.74 (0.87-1.13) L 03/13/19 21:33 APTT 20.0 Sec. (24.2-36.6) L 03/13/19 21:33 Sodium 138 mmol/L (137-145) 03/15/19 05:06 Potassium 3.7 mmol/L (3.6-5.0) 03/15/19 05:06 Chloride 95.2 mmol/L (98-107) L 03/15/19 05:06 Carbon Dioxide 21 mmol/L (22-30) L 03/15/19 05:06 26 mmol/L 03/15/19 05:06 BUN 54 mg/dL (9-20) H 03/15/19 05:06 5.1 mg/dL (0.8-1.5) H D 03/15/19 05:06 Estimated GFR 11 ml/min 03/15/19 05:06 11 % 03/15/19 05:06 Glucose 73 mg/dL (75-100) L 03/15/19 05:06 POC Glucose 65 (70-105) L 03/14/19 23:51 Calcium 9.8 mg/dL (8.4-10.2) 03/15/19 05:06 Hepatitis A IgM Ab Non-reactive (NonReactive) 03/14/19 20:02 Hep Bs Antigen Non-reactive (Negative) 03/14/19 20:02 Hep B Core IgM Ab Non-reactive (NonReactive) 03/14/19 20:02 Non-reactive (NonReactive) 03/14/19 20:02 Active Medications - Current Medications Current Medications: Generic Name Dose Route Start Last Admin Trade Name Freq PRN Reason Stop Dose Admin Lipase/Protease/Amylase 1 each 03/15/19 10:[address] 10,500 Unit FEEDTUBE PRN PRN For Clogged Feeding Tube Hydralazine HCl 10 mg 03/14/19 01:49 Apresoline IV Q4H PRN Blood Pressure Sodium Chloride 100 mls @ 999 mls/hr 03/14/19 17:32 Nacl 0.9% IV FANNY PRN Hypotension Sodium Chloride 1,000 mls @ 50 mls/hr 03/15/19 07:00 Nacl 0.9% 1000 Ml IV DIRECT BASIL Lansoprazole 30 mg 03/17/19 10:00 Prevacid Solutab FEEDTUBE QDAY BASIL Ondansetron HCl 4 mg 03/14/19 00:45 Zofran IV Q8H PRN Nausea And Vomiting Simple Syrup 15 ml 03/15/19 10:30 Simple Syrup FEEDTUBE PRN PRN Hypoglycemia Simple Syrup 30 ml 03/15/19 10:30 Simple Syrup FEEDTUBE PRN PRN Hypoglycemia Sodium Bicarbonate 325 mg 03/15/19 10:30 Sodium Bicarbonate FEEDTUBE PRN PRN For Clogged Feeding Tube Sodium Chloride 10 ml 03/14/19 10:00 03/16/19 09:11 Sodium Chloride Flush Syringe 10 Ml IV 10 ml BID BASIL Administration Sodium Chloride 10 ml 03/14/19 00:45 Sodium Chloride Flush Syringe 10 Ml IV PRN PRN LINE FLUSH Nutrition/Malnutrition Assess - Dietary Evaluation Nutrition/Malnutrition Findings: Nutrition Notes Start: 03/14/19 11:04 Freq: Status: Active Protocol: Document 03/15/19 13:19 LM (Rec: 03/15/19 13:32 LM [id number]) Nutrition Notes Need for Assessment generated from: MD Order Initial or Follow up Brief Note Current Diagnosis CKD (stage V CKD),Hypertension ,Heart Failure Other Pertinent Diagnosis PEG tube dislodgement, bipolar disorder, schizophrenia, GERD , dysphagia Current Diet NPO Height 5 ft 5 in Weight 54 kg Usual Body Weight 77.27 kg [place] Body Weight (kg) 61.81 BMI 19.8 Subjective/Other Information MD consult for TF. Is patient on ventilator? No Is Patient Ambulatory and/or Out of Bed No REE-([facility]-confined to bed) 1478.328 Kcal/Kg value to use for calculation 36 Approximate Energy Requirements Using 1944 kcal/Kg Calculation Used for Recommendations Kcal/kg Additional Notes Protein: 66-72g (1.2-1.3 g/kg) Fluids: 1-1.5 L Nutrition Intervention Change Diet Order: TF Nutrition Support: Nepro with Carbsteady at 45 ml /hr Flush 100 ml q4hr Kcal 1,944 Protein (gm) 87 Fluid (mL) 785 Follow-Up By: 03/16/19 Additional Comments F/U for TF start/tolerance
[2019-03-16] MEDS ORDERED: SODIUM BICARBONATE FEEDTUBE PRN (13:59)
[2019-03-16] MEDS ORDERED: PANCREAZE DR 10,500 UNIT FEEDTUBE PRN (13:59)
[2019-03-16] MEDS ORDERED: SIMPLE SYRUP FEEDTUBE PRN ×2 (13:59)
--- NOTE | 2019-03-16 17:15 | Progress Note ---
Assessment and Plan - Patient Problems (1) ESRD (end stage renal disease) on dialysis Current Visit: Yes Status: Acute Plan to address problem: cont HD on MWF schedule (2) PEG (percutaneous endoscopic gastrostomy) adjustment/replacement/removal Current Visit: Yes Status: Acute Plan to address problem: Follow Surgery recommendations for reinsertion of PEG tube. Subjective Date of service: 03/16/19 Principal diagnosis: Dysphagia Interval history: Pt awake, alert, in NAD, s/p reinsertion of PEG tube Objective - Vital Signs Vital signs: Vital Signs - 12hr 03/16/19 03/16/19 03/16/19 07:31 10:00 13:30 Temperature 97.2 F L 98.6 F Pulse Rate 94 H 104 H 111 H Pulse Rate [ 104 H From Monitor] Respiratory 18 18 18 Rate Blood Pressure 130/77 115/79 O2 Sat by Pulse 95 95 98 Oximetry - General Appearance General appearance: well-developed, appears stated age EENT: ATNC, PERRL, mucous membranes moist Neck: no JVD Respiratory: Present: Clear to Ascultation Cardiology: regular, S1S2 Gastrointestinal: normoactive bowel sounds Integumentary: no rash, other (no edema ) Neurologic: no focal deficit, alert and oriented x3, strength 5/5, CN 3-12 intact Psychiatric: mood/affect appropriate, cooperative - Lab 03/13/19 21:33 03/15/19 05:06 Most recent lab results Calcium 9.8 mg/dL (8.4-10.2) 03/15/19 05:06 Medications & Allergies - Medications Allergies/Adverse Reactions: Allergies No Known Allergies Allergy (Unverified 03/13/19 22:34) Home Medications: Home Medications Medication Instructions Recorded Confirmed Last Taken Type Escitalopram Oxalate [Lexapro] 5 mg FEEDTUBE QDAY 03/14/19 03/14/19 Unknown History L. Acidophilus/L.bulgaricus 1 each FEEDTUBE DAILY 03/14/19 03/14/19 Unknown History [Lactobacillus Tablet] Metoprolol [Lopressor] 25 mg FEEDTUBE BID 03/14/19 03/14/19 Unknown History Ondansetron [Zofran TAB] 4 mg FEEDTUBE Q8HR PRN 03/14/19 03/14/19 Unknown History Pepcid 20 mg FEEDTUBE BID 03/14/19 03/14/19 Unknown History QUEtiapine [SEROquel] 25 mg FEEDTUBE BID 03/14/19 03/14/19 02/28/19 History Active Medications: Generic Name Dose Route Start Last Admin Trade Name Freq PRN Reason Stop Dose Admin Lipase/Protease/Amylase 1 each 03/16/19 13:59 Pancreaze 10,500 Unit FEEDTUBE PRN PRN For Clogged Feeding Tube Hydralazine HCl 10 mg 03/14/19 01:49 Apresoline IV Q4H PRN Blood Pressure Sodium Chloride 100 mls @ 999 mls/hr 03/14/19 17:32 Nacl 0.9% IV FANNY PRN Hypotension Sodium Chloride 1,000 mls @ 50 mls/hr 03/15/19 07:00 Nacl 0.9% 1000 Ml IV DIRECT BASIL Lansoprazole 30 mg 03/17/19 10:00 Prevacid Solutab FEEDTUBE QDAY BASIL Ondansetron HCl 4 mg 03/14/19 00:45 Zofran IV Q8H PRN Nausea And Vomiting Simple Syrup 30 ml 03/15/19 10:30 Simple Syrup FEEDTUBE PRN PRN Hypoglycemia Simple Syrup 15 ml 03/16/19 13:59 Simple Syrup FEEDTUBE PRN PRN Hypoglycemia Sodium Bicarbonate 325 mg 03/16/19 13:59 Sodium Bicarbonate FEEDTUBE PRN PRN For Clogged Feeding Tube Sodium Chloride 10 ml 03/14/19 10:00 03/16/19 09:11 Sodium Chloride Flush Syringe 10 Ml IV 10 ml BID BASIL Administration Sodium Chloride 10 ml 03/14/19 00:45 Sodium Chloride Flush Syringe 10 Ml IV PRN PRN LINE FLUSH
[2019-03-17] MEDS: SODIUM CHLORIDE FLUSH SYRINGE 10 ML IV SCH ×2 (06:13→13:09)
--- NOTE | 2019-03-17 07:50 | Discharge Summary ---
Providers - Providers Date of Admission: 03/14/19 00:45 Date of discharge: 03/17/19 Attending physician: AMINA MCGREGOR 03/14/19 00:30 Consult to Physician [CONS] Urgent Comment: seen by dr. león/ raoul Consulting Provider: ERIC ODELL Physician Instructions: Reason For Exam: peg dislodged 03/14/19 01:46 Consult to Physician [CONS] Routine Comment: seen by dr. patel/ raoul Consulting Provider: ALEXI PATEL Physician Instructions: Reason For Exam: ESRD on HD m/w/f 03/15/19 10:31 Consult to Dietitian/Nutrition [CONS] Routine Physician Instructions: Assess nutrtn needs, initiate, modify, manage TF Reason For Exam: Reason for Consult: Write/Manage Tube Feeding Reason for Consult: Write/Manage Tube Feeding Primary care physician: NURSING UNIT MANAGER Hospitalization Reason for admission: Dislodged PEG Condition: Stable Pertinent studies: CT Abd/Pelvis negative for retained foreign body Procedures: New PEG placement Hospital course: 69-year-old male who is resident of [facility] with history of bipolar disorder, schizophrenia, anxiety, GERD, chronic dysphagia s/p PEG tube, ESRD on HD M/W/F, hypertension, CHF, cardiomyopathy who presents to [facility] ED complaints of PEG tube dislodgment and is here for reinsertion. CT Abd/Pelvis negative for retained foreign body Patient was evaluated by GI, underwent nerve PEG placement, functioning well Evaluated by nephrology, patient received hemodialysis per schedule The patient is comfortable in no new complaints vital signs stable physical examination unremarkable Hemodynamically and clinically stable for discharge back to SNF today --PEG tube dislodgment: s/p New PEG placement today Start PEG feeds per Protocol GI following.Patient also takes oral mechanical soft diet Monitor closely --End-stage renal disease on hemodialysis: HD per scheduled ,Nephrology following --Hypertension: Great control Monitor blood pressures, when necessary hydralazine --DVT PROPHYLAXIS; SCDs Patient is stable at discharge Disposition: DC/[place]-03 SNF [facility] Time spent for discharge: 32 min Core Measure Documentation - Palliative Care Palliative Care/ Comfort Measures: Not Applicable - Core Measures Any of the following diagnoses?: none Exam - Constitutional Vitals: Temp Pulse Resp BP Pulse Ox 99.5 F 107 H 18 131/80 93 03/17/19 02:10 03/17/19 02:10 03/17/19 02:10 03/17/19 02:10 03/17/19 02:10 General appearance: Present: no acute distress, well-nourished - EENT Eyes: Present: PERRL, EOM intact - Neck Neck: Present: supple, normal ROM - Respiratory Respiratory effort: normal Respiratory: bilateral: diminished, negative: rales, rhonchi, wheezing - Cardiovascular Rhythm: regular Heart Sounds: Present: S1 & S2 - Extremities Extremities: no ischemia, No edema Peripheral Pulses: within normal limits - Abdominal General gastrointestinal: Present: soft, non-tender, non-distended, normal bowel sounds - Integumentary Integumentary: Present: clear, warm - Musculoskeletal Musculoskeletal: strength equal bilaterally, generalized weakness - Psychiatric Psychiatric: appropriate mood/affect, cooperative - Neurologic Neurologic: moves all extremities Plan Activity: advance as tolerated, fall precautions Diet: other (PEG feeds per protocol ,Mechanical soft diet as tolerated) Special Instructions: physical therapy Additional Instructions: f/u renal.HD per schedule Follow up with: PRIMARY MD DAVID [Primary Care Provider] - 7 Days ALEXI PATEL MD [Staff Physician] - 7 Days YOLA LEÓN MD [Staff Physician] - 7 Days
[2019-03-17] MEDS ORDERED: NACL 0.9% 100 ML IV PRN (10:00)
[2019-03-17] MEDS ORDERED: PREVACID SOLUTAB FEEDTUBE SCH (10:00)
[2019-03-17 14:14] VITALS: BP 115/78
== END 2019-03-17 14:00 | DRG 393 ==
LOC: ED 17:50 → 2B-ACE 03-14 00:45
PROVIDERS: ADMIT Internal Medicine; ATTEND Internal Medicine
PROC: 0DH63UZ Insertion of Feeding Device into Stomach, Percutaneous Approach (ICD-10-PCS; principal; 2019-03-15)
PROC: 0DB78ZX Excision of Stomach, Pylorus, Via Natural or Artificial Opening Endoscopic, Diagnostic (ICD-10-PCS; 2019-03-15)
PROC: 0DP6XUZ Removal of Feeding Device from Stomach, External Approach (ICD-10-PCS; 2019-03-15)
PROC: 5A1D70Z Performance of Urinary Filtration, Intermittent, Less than 6 Hours Per Day (ICD-10-PCS; 2019-03-15)
PROC: 5A1D70Z Performance of Urinary Filtration, Intermittent, Less than 6 Hours Per Day (ICD-10-PCS; 2019-03-17)
DX: Z43.1 Encounter for attention to gastrostomy (principal); N18.6 End stage renal disease; I13.2 Hypertensive heart and chronic kidney disease with heart failure and with stage 5 chronic kidney disease, or end stage renal disease; I42.9 Cardiomyopathy, unspecified; R13.10 Dysphagia, unspecified; F20.9 Schizophrenia, unspecified; K29.60 Other gastritis without bleeding; K29.80 Duodenitis without bleeding; F41.9 Anxiety disorder, unspecified; K21.9 Gastro-esophageal reflux disease without esophagitis; Y83.8 Other surgical procedures as the cause of abnormal reaction of the patient, or of later complication, without mention of misadventure at the time of the procedure; Y82.8 Other medical devices associated with adverse incidents; I50.9 Heart failure, unspecified; Z99.2 Dependence on renal dialysis; Z79.899 Other long term (current) drug therapy; Y92.89 Other specified places as the place of occurrence of the external cause
CPT/HCPCS: 36415; 74018; 74176; 80048; 80074; 82962; 85025; 85610; 85730; 87116; 88305; 88342; G0378; C9113; J0690; J2704; J7030